=== PATIENT | female | born 1950 | race Caucasian/White ===

== ENCOUNTER → 2016-11-12 | Outpatient (CLI) | payer MEDICARE, OTHER ==
[~2016-11-12] MED LIST: GLUCOPHAGE500 MG PO; KLONOPIN0.5 MG PO; LEVOTHROID (S125 MCG PO; LOSARTAN-HCTZ1 EAC1 PO; MIRAPEX0.5 MG PO; TAMBOCOR100 MG PO; TOPROL XL 5050 MG PO
--- NOTE | 2016-11-12 10:00 | NUR ---
[facility] Introduced self and explained role of nurse navigator. Navigator brochure given with my contact information circled. Permission received for follow up call tomorrow.
--- NOTE | 2016-11-13 13:58 | NUR ---
Follow up call made to check on patient post breast biopsy. Patient states she is doing well. No pain, redness, or edema. No questions or concerns.
== END | disposition disaster alternative care site (69) ==
LOC: GPOC 11-10 10:00 → GBCOE 08:48 → GPOC 10:00 → GBCOE 10:00
PROC: 0HBU3ZX Excision of Left Breast, Percutaneous Approach, Diagnostic (ICD-10-PCS; principal; 2016-11-12)
DX: R92.0 Mammographic microcalcification found on diagnostic imaging of breast (principal)
CPT/HCPCS: J7050